=== PATIENT | female | born 1960 | race Caucasian/White ===

== ENCOUNTER 2025-02-03 11:36 | Emergency (ER) | payer MEDICARE, SELFPAY ==
[2025-02-03 11:51] VITALS: BP 134/68; PULSE 81; RESP 16; TEMP 36.5; O2SAT 100
--- NOTE | 2025-02-03 12:58 | ED.URI ---
HPI - URI/Sore Throat General Chief Complaint: Upper Respiratory Infection Stated Complaint: SINUS CONGESTION/TIRED Time Seen by Provider: 02/03/25 12:50 Source: patient and RN notes reviewed Mode of arrival: ambulatory Limitations: no limitations History of Present Illness HPI Narrative: 64-year-old female presents [facility] complaining of sinus pressure, congestion, drainage for almost 1 month. Said her symptoms started is upper respiratory infection with a cough. Patient said the cough has subsided however she continues to have right-sided sinus pressure, congestion, drainage. Patient reports having thicker nasal discharge but denies any yellow or green discharge. Patient has been taking Sudafed and [id number] medications without relief. Patient denies any fevers, body aches, chills, nausea, vomiting, diarrhea, or any other upper respiratory symptoms. Patient says she has a history of fibromyalgia and autoimmune disease. Related Data Allergies Allergy/AdvReac Type Severity Reaction Status Date / Time cephalexin Allergy Unknown does not Verified 02/03/25 12:02 help her chest erythromycin base Allergy Unknown Nausea Verified 02/03/25 12:02 milnacipran (Savella) Allergy Unknown intolerance Verified 02/03/25 12:02 Penicillins Allergy Unknown Skin Verified 02/03/25 12:02 Reaction sertraline Allergy Unknown severe Verified 02/03/25 12:02 stomach ache Sulfa (Sulfonamide Allergy Unknown Skin Verified 02/03/25 12:02 Antibiotics) Reaction Review of Systems Review of Systems: CONSTITUTIONAL: Denies fever, chills, body aches, or sweats. EYES: Denies visual changes, redness, or discharge. ENT: Negative for rhinorrhea, sore throat, or otalgia. Positive for congestion and sinus pressure. CARDIOVASCULAR: Denies chest pain, palpitations, or edema. RESPIRATORY: Negative for cough and dyspnea. GASTROINTESTINAL: Denies abdominal pain, nausea, vomiting, or diarrhea. GENITOURINARY: Denies dysuria or hematuria. SKIN: Denies rash or itching. MUSCULOSKELETAL: Denies back pain, joint pain, or myalgia. NEUROLOGIC: Denies headache, numbness, or weakness. PSYCHIATRIC: Denies anxiety or depression. All other systems reviewed are negative, except as documented in HPI. PMFSH Comments At the time of my signature, I reviewed and agree with the nursing past medical, surgical, social, and family history. There is no relevant family history pertinent to the patient complaint. Exam Narrative: GENERAL: This is a well-nourished, well-developed adult, in no apparent distress. They are non ill-appearing, nontoxic appearing. HEAD: normocephalic, atraumatic. EYES: Sclera clear/white. Vision is grossly intact. Conjunctiva normal bilaterally. Extraocular movements intact. EARS: External ears normal, auditory canals clear and without drainage, TMs without erythema or perforation. Hearing grossly intact. NOSE: External nose normal with no obvious nasal discharge, nasal turbinates erythematous, no rhinorrhea. Tenderness to palpation to the right maxillary and frontal sinuses. THROAT: Mucous membranes moist, posterior pharynx without redness or swelling, or exudate. Uvula is midline. Postnasal drip present. NECK: Neck supple, non-tender without lymphadenopathy, masses or thyromegaly. CARDIOVASCULAR: Regular rate and rhythm without murmurs, gallops, or rubs. RESPIRATORY: Clear to auscultation. Breath sounds equal bilaterally. No wheezes, rales, or rhonchi. SKIN: warm, Dry, intact with no suspicious lesions or rash, good texture and turgor. NEURO: awake, alert, and oriented to person, place and time. There were no obvious focal neurologic abnormalities. EXTREMITIES: No joint tenderness, effusion, or edema noted. BACK: Nontender without deformity. Course Course Emergency Course: Portions of this record may have been created with voice recognition software Level of Care: Express Care Visit Vital Signs Vital signs: Vital Signs Temperature 97.7 F 02/03/25 11:51 Pulse Rate 81 02/03/25 11:51 Respiratory Rate 16 02/03/25 11:51 Blood Pressure 134/68 02/03/25 11:51 Pulse Oximetry 02/03/25 11:51 Temperature 97.7 F 02/03/25 11:51 Pulse Rate 81 02/03/25 11:51 Respiratory Rate 16 02/03/25 11:51 Blood Pressure 134/68 02/03/25 11:51 Pulse Oximetry 02/03/25 11:51 MDM - URI/Sore Throat MDM Narrative Medical decision making narrative: Given patient's length symptoms is likely she has developed a bacterial sinusitis. Will treat empirically with doxycycline. Discussed physical exam findings. Advised supportive measures and signs/symptoms to go to the ER. Pt is appropriate for outpt treatment and f/u. Differential Diagnosis Differential diagnosis: Likely upper respiratory infection, sinusitis and viral infection Discharge Plan Discharge Clinical Impression: Sinusitis Qualifiers: Sinusitis location: unspecified location Chronicity: acute Recurrence: non-recurrent Qualified Code(s): J01.90 - Acute sinusitis, unspecified Patient Disposition: Home Condition: Stable Instructions: Antibiotic Form, Sinusitis (ED) Additional Instructions: Take the antibiotics as directed and complete the course even if you start to feel better. Please wear sunscreen if you going to be outside while taking doxycycline. You may use a Neti pot saline rinse 3 times a day with lukewarm distilled water Continue to take Tylenol or Motrin for pain. Use a humidifier or vaporizer at night. Drink plenty of water. 8-10 glasses per day. Use flonase 2 times per day for 5 days then as needed Take mucinex 2 times per day and be sure to take with 8oz of water. Follow up with Primary provider in 3-5 days Please go to the ER if he develops any difficulty breathing, worsening symptoms, or any other concerns Patient Language: Mozambican Prescriptions: New doxycycline monohydrate 100 mg capsule 100 mg PO BID 7 Days Qty: 14 0RF Follow-up/Referrals: PHYSICIAN,[employer] [Primary Care Provider] - Time of Disposition: 12:56
== END 2025-02-03 12:58 | disposition home or self-care (01) ==
DX: J01.90 Acute sinusitis, unspecified (principal); M79.7 Fibromyalgia; M35.9 Systemic involvement of connective tissue, unspecified
CPT/HCPCS: 99213; G0463

== ENCOUNTER 2025-02-24 18:54 | Emergency (ER) | payer MEDICARE, SELFPAY ==
[2025-02-24 19:20] VITALS: BP 138/84; PULSE 80; RESP 16; TEMP 37.1; O2SAT 100
--- NOTE | 2025-02-24 20:53 | ED_ITS ---
HPI - URI/Sore Throat General Chief Complaint: Upper Respiratory Infection Stated Complaint: sinus congestion Time Seen by Provider: 02/24/25 19:50 Source: patient and RN notes reviewed Mode of arrival: ambulatory Limitations: no limitations History of Present Illness HPI Narrative: 64-year-old female presents Express Care complaining of upper respiratory symptoms and sinus pressure for 10 days. Patient was recently seen here for sinus infection was treated with doxycycline for 1 week. Patient stated she felt a lot better on treatment approximately 4 days later she developed sinus pressure again. Patient reports left-sided sinus congestion, thick nasal discharge, pain that radiates to to her teeth. Denies any other upper respiratory symptoms, cough, chest pain, shortness of breath, nausea, vomiting, or any other symptoms. Patient is continue to use Flonase as needed for congestion. Patient has never seen ENT in the past. Related Data Home Medications ?Medication ?Instructions ?Recorded ?Confirmed ?Last Taken ?Type alprazolam 0.5 mg tablet mg 02/24/25 Unknown History amitriptyline 25 mg tablet mg 02/24/25 Unknown History amlodipine 2.5 mg tablet mg 02/24/25 Unknown History chlordiazepoxide HCl 10 mg capsule mg 02/24/25 Unknown History duloxetine 20 mg capsule,delayed mg PO 02/24/25 Unknown History release esomeprazole magnesium 40 mg mg 02/24/25 Unknown History capsule,delayed release hydroxychloroquine 200 mg tablet mg PO 02/24/25 Unknown History ketoconazole 2 % topical cream applic topical 02/24/25 Unknown History Allergies Allergy/AdvReac Type Severity Reaction Status Date / Time cephalexin Allergy Unknown does not Verified 02/24/25 19:28 help her chest erythromycin base Allergy Unknown Nausea Verified 02/24/25 19:28 milnacipran (Savella) Allergy Unknown intolerance Verified 02/24/25 19:28 Penicillins Allergy Unknown Skin Verified 02/24/25 19:28 Reaction sertraline Allergy Unknown severe Verified 02/24/25 19:28 stomach ache Sulfa (Sulfonamide Allergy Unknown Skin Verified 02/24/25 19:28 Antibiotics) Reaction Review of Systems Review of Systems: CONSTITUTIONAL: Denies fever, chills, body aches, or sweats. EYES: Denies visual changes, redness, or discharge. ENT: Positive for rhinorrhea, sore throat, or otalgia. Positive for sinus pressure and congestion. CARDIOVASCULAR: Denies chest pain, palpitations, or edema. RESPIRATORY: Negative for cough or dyspnea. GASTROINTESTINAL: Denies abdominal pain, nausea, vomiting, or diarrhea. GENITOURINARY: Denies dysuria or hematuria. SKIN: Denies rash or itching. MUSCULOSKELETAL: Denies back pain, joint pain, or myalgia. NEUROLOGIC: Denies headache, numbness, or weakness. PSYCHIATRIC: Denies anxiety or depression. All other systems reviewed are negative, except as documented in HPI. PMFSH Comments At the time of my signature, I reviewed and agree with the nursing past medical, surgical, social, and family history. There is no relevant family history pertinent to the patient complaint. Exam Narrative: GENERAL: This is a well-nourished, well-developed adult, in no apparent distress. They are non ill-appearing, nontoxic appearing. HEAD: normocephalic, atraumatic. EYES: Sclera clear/white. Vision is grossly intact. Conjunctiva normal bilaterally. Extraocular movements intact. EARS: External ears normal, auditory canals clear and without drainage, TMs without erythema or perforation. Hearing grossly intact. NOSE: External nose normal with no obvious nasal discharge, nasal turbinates erythematous, no rhinorrhea. Left maxillary sinus tenderness to palpation. THROAT: Mucous membranes moist, posterior pharynx without redness or swelling, no exudate. Uvula is midline. Postnasal drip present. NECK: Neck supple, non-tender without lymphadenopathy, masses or thyromegaly. CARDIOVASCULAR: Regular rate and rhythm without murmurs, gallops, or rubs. RESPIRATORY: Clear to auscultation. Breath sounds equal bilaterally. No wheezes, rales, or rhonchi. SKIN: warm, Dry, intact with no suspicious lesions or rash, good texture and turgor. NEURO: awake, alert, and oriented to person, place and time. There were no obvious focal neurologic abnormalities. EXTREMITIES: No joint tenderness, effusion, or edema noted. BACK: Nontender without deformity. Course Course Emergency Course: Portions of this record may have been created with voice recognition software Level of Care: Express Care Visit Vital Signs Vital signs: Vital Signs Temperature 98.7 F 02/24/25 19:20 Pulse Rate 80 02/24/25 19:20 Respiratory Rate 16 02/24/25 19:20 Blood Pressure 138/84 02/24/25 19:20 Pulse Oximetry 100 02/24/25 19:20 Temperature 98.7 F 02/24/25 19:20 Pulse Rate 80 02/24/25 19:20 Respiratory Rate 16 02/24/25 19:20 Blood Pressure 138/84 02/24/25 19:20 Pulse Oximetry 100 02/24/25 19:20 MDM - URI/Sore Throat MDM Narrative Medical decision making narrative: Patient likely developed another bacterial sinusitis. Given the recurrence will go ahead and treat with doxycycline for 2 weeks. Advised patient is symptoms persist she may need to follow-up with ENT. Also recommend supportive therapy such as Flonase and sinus rinses. Discussed physical exam findings. Advised supportive measures and signs/symptoms to go to the ER. Pt is appropriate for outpt treatment and f/u. Differential Diagnosis Differential diagnosis: Likely upper respiratory infection, sinusitis and viral infection Discharge Plan Discharge Clinical Impression: Sinusitis Qualifiers: Sinusitis location: unspecified location Chronicity: acute Recurrence: recurrent Qualified Code(s): J01.91 - Acute recurrent sinusitis, unspecified Patient Disposition: Home Condition: Stable Instructions: Antibiotic Form, Sinusitis (ED) Additional Instructions: Take the antibiotics as directed and complete the course even if you start to feel better. Please wear sunscreen while taking doxycycline if you are going to be outside. You may use a Neti pot saline rinse 3 times a day with lukewarm distilled water Continue to take Tylenol or Motrin for pain. Use a humidifier or vaporizer at night. Drink plenty of water. 8-10 glasses per day. Use flonase 2 times per day for 5 days then as needed Take mucinex 2 times per day and be sure to take with 8oz of water. Follow up with Primary provider in 3-5 days You may need to see an ENT if symptoms continue to persist. Please go to the ER if he develops any difficulty breathing, worsening symptoms, or any other concerns Patient Language: Burkinan Prescriptions: New doxycycline monohydrate 100 mg capsule 100 mg PO BID 14 Days Qty: 28 0RF No Action amlodipine 2.5 mg tablet alprazolam 0.5 mg tablet amitriptyline 25 mg tablet esomeprazole magnesium 40 mg capsule,delayed release(DR/EC) chlordiazepoxide HCl 10 mg capsule hydroxychloroquine 200 mg tablet PO ketoconazole 2 % cream TOPICAL duloxetine 20 mg capsule,delayed release(DR/EC) PO doxycycline monohydrate 100 mg capsule 100 mg PO BID 7 Days Qty: 14 0RF Follow-up/Referrals: PHYSICIAN,[facility] EQU[employer]MENT OPERATOR [Primary Care Provider] - Time of Disposition: 20:09
== END 2025-02-24 20:12 | disposition home or self-care (01) ==
DX: J01.91 Acute recurrent sinusitis, unspecified (principal)
CPT/HCPCS: 99213; G0463

== ENCOUNTER 2025-07-20 11:33 | Outpatient (CLI) | payer MEDICARE, SELFPAY ==
--- NOTE | ~2025-07-20 | XR_ITS ---
XR lumbar spine 2-3V Indication: M54.31 - Sciatica, right side Comparison: None Findings: The vertebral heights are intact. No fracture or subluxation. The disc heights are intact. Soft tissues unremarkable Impression: No acute abnormality. Reviewed, dictated and finalized at location P. [facility] [employer]GI[employer] ADMINISTRATIVE ASSISTANT Impression: No acute abnormality.
--- NOTE | ~2025-07-20 | XR_ITS ---
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 Findings: No acute fracture or malalignment. Sclerosis of the sacroiliac joints, no bridging osteophyte formation or erosions identified Soft tissues unremarkable. Impression: No acute fracture or malalignment. Reviewed, dictated and finalized at location P. UCTION BROACHER Impression: No acute fracture or malalignment.
== END 2025-07-20 11:34 | disposition home or self-care (01) ==
PROVIDERS: PCP Nurse Practitioner; Visit Provider Nurse Practitioner
DX: M54.31 Sciatica, right side (principal)
CPT/HCPCS: 72100; 72220